=== PATIENT | male | born 1975 | race Two or more races ===

== ENCOUNTER 2018-11-15 14:42 | Observation (INO) | payer OTHER ==
[~2018-11-15] VITALS: Ht 175.3 cm; Wt 73.0 kg
[2018-11-15] MEDS ORDERED: ASPIRIN 81 MG TABLET CHEW PO ONE (15:00)
[2018-11-15 15:06] LABS: BASOPHILS # (AUTO) 0.04 x10^3/uL (0-0.1); BASOPHILS % (AUTO) 1 % (0-1); EOSINOPHILS # (AUTO) 0.07 x10^3/uL (0-0.4); EOSINOPHILS % (AUTO) 1 % (1-7); LYMPHOCYTES # (AUTO) 1.25 x10^3/uL (1-3.4); LYMPHOCYTES % (AUTO) 17 % (22-44); MD NO; MEAN CORPUSCULAR HEMOGLOBIN 30.3 pg (27.5-34.5); MEAN CORPUSCULAR HGB CONC 32.5 g/dL (33.2-36.2); MEAN CORPUSCULAR VOLUME 93.3 fL (81-97); MEAN PLATELET VOLUME 8.4 fL (7.4-10.4); MONOCYTES # (AUTO) 0.29 x10^3/uL (0.2-0.8); MONOCYTES % (AUTO) 4 % (2-9); NEUTROPHILS # (AUTO) 5.92 x10^3/uL (1.8-6.8); NEUTROPHILS % (AUTO) 78 % (42-75); PLATELET COUNT 243 x10^3/uL (130-400); RED BLOOD COUNT 5.05 x10^6/uL (4.38-5.82); RED CELL DISTRIBUTION WIDTH 14.1 % (9.4-14.8)
[2018-11-15 15:19] LABS: ALBUMIN 3.1 g/dL (3.4-5.0); ANION GAP 4 mmol/L (5-15); CALCIUM 7.9 mg/dL (8.5-10.1); CHLORIDE 104 mmol/L (98-107)
[2018-11-15 15:25] LABS: ALANINE AMINOTRANSFERASE 21 U/L (12-78); ALKALINE PHOSPHATASE 52 U/L (45-117); BILIRUBIN,TOTAL 0.6 mg/dL (0.2-1.0); TOTAL PROTEIN 5.2 g/dL (6.4-8.2); TROPONIN I < 0.015 ng/mL (0.000-0.045)
[2018-11-15] MEDS ORDERED: ASPIRIN 81 MG TABLET CHEW ONE (15:43)
[2018-11-15] MEDS ORDERED: D5%-0.45NACL+KCL 20MEQ 1,000 ML IV SCH (16:26)
[2018-11-15] MEDS ORDERED: IBUPROFEN 600 MG TABLET PO PRN (16:30)
[2018-11-15] MEDS ORDERED: ACETAMINOPHEN 325 MG TABLET PO PRN (16:30)
[2018-11-15] MEDS ORDERED: ONDANSETRON 2MG/ML, 2ML IVPush PRN (16:30)
[2018-11-15] MEDS ORDERED: hydrALAzine 20 MG/ML, 1ML IVPush PRN (16:30)
[2018-11-15] MEDS ORDERED: SODIUM CHLORIDE 0.9% 1,000ML IVBOLUS ONE (16:30)
[2018-11-15] MEDS ORDERED: MECLIZINE 25 MG TABLET PO PRN (17:00)
[2018-11-15 18:02] VITALS: BP 113/72
== END 2018-11-15 19:58 | disposition left against medical advice (07) ==
LOC: ED 15:49 → INTOOBSV 15:50 → UNDOADMOB 15:50 → EDIP 15:50 → ED 17:09 → 4WST 18:40 → EDIP 18:40 → 4WST 18:40 → UNDODISOB 19:58
PROVIDERS: ADMIT Internal Medicine; ATTEND Internal Medicine
DX: R55 Syncope and collapse (principal); R07.89 Other chest pain; R73.9 Hyperglycemia, unspecified; R27.0 Ataxia, unspecified; F17.210 Nicotine dependence, cigarettes, uncomplicated; F12.10 Cannabis abuse, uncomplicated; Z72.89 Other problems related to lifestyle
CPT/HCPCS: 36415; 71045; 80053; 83880; 84484; 85025; 93005; 96360; 99284; G0378; J7030

== ENCOUNTER 2018-11-16 14:07 | Emergency (ER) | payer SELFPAY ==
[~2018-11-16] VITALS: Ht 175.3 cm; Wt 70.0 kg
--- NOTE | 2018-11-16 14:16 | NUR ---
task rn: pt bib ems for sharp, intermittent, nonradiating cp starting yesterday. pt states each episode lasts "a few seconds" and is reproducible upon palpation to mid sternum. pt denies trauma. pt was seen here yesterday for same, bu tleft ama prior to diagnosis. iv established in route. 324mg asa administered by ems. pt connected to monitors. vss. edmd present for assessment. awaiting orders.
[2018-11-16 14:35] LABS: BASOPHILS # (AUTO) 0.07 x10^3/uL (0-0.1); BASOPHILS % (AUTO) 1 % (0-1); EOSINOPHILS # (AUTO) 0.08 x10^3/uL (0-0.4); EOSINOPHILS % (AUTO) 1 % (1-7); LYMPHOCYTES # (AUTO) 2.05 x10^3/uL (1-3.4); LYMPHOCYTES % (AUTO) 26 % (22-44); MD NO; MEAN CORPUSCULAR HGB CONC 33.2 g/dL (33.2-36.2); MEAN CORPUSCULAR VOLUME 93.5 fL (81-97); MEAN PLATELET VOLUME 8.8 fL (7.4-10.4); MONOCYTES # (AUTO) 0.41 x10^3/uL (0.2-0.8); MONOCYTES % (AUTO) 5 % (2-9); NEUTROPHILS # (AUTO) 5.28 x10^3/uL (1.8-6.8); NEUTROPHILS % (AUTO) 67 % (42-75); PLATELET COUNT 264 x10^3/uL (130-400); RED BLOOD COUNT 4.66 x10^6/uL (4.38-5.82); RED CELL DISTRIBUTION WIDTH 14.1 % (9.4-14.8)
[2018-11-16 14:45] LABS: ALBUMIN 3.2 g/dL (3.4-5.0); ANION GAP 8 mmol/L (5-15); CALCIUM 8.4 mg/dL (8.5-10.1); CHLORIDE 106 mmol/L (98-107); CREATININE 0.97 mg/dL (0.7-1.3)
[2018-11-16 14:49] LABS: TROPONIN I < 0.015 ng/mL (0.000-0.045)
--- NOTE | 2018-11-16 14:56 | NUR ---
report given to Prabha
[2018-11-16] MEDS ORDERED: ONDANSETRON ODT 4 MG ONE (15:04)
[2018-11-16] MEDS ORDERED: ACETAMINOPHEN 500 MG TABLET ONE (15:04)
--- NOTE | 2018-11-16 15:09 | NUR ---
pt resting in room. vss. pt reports andres and nausea when standing. refused road test. edmd notified. awaiting orders.
[2018-11-16] MEDS ORDERED: ONDANSETRON ODT 4 MG PO ONE (15:30)
[2018-11-16] MEDS ORDERED: ACETAMINOPHEN 500 MG TABLET PO ONE (15:30)
[2018-11-16 16:01] VITALS: BP 118/89
== END 2018-11-16 16:20 | disposition home or self-care (01) ==
LOC: ED 15:09
DX: R07.89 Other chest pain (principal); R06.02 Shortness of breath; R11.0 Nausea; F17.200 Nicotine dependence, unspecified, uncomplicated
CPT/HCPCS: 36415; 71045; 80048; 82040; 84484; 85025; 93005; 99284; Q0162

== ENCOUNTER 2019-03-24 17:16 | Emergency (ER) | payer MEDICAID ==
[~2019-03-24] VITALS: Ht 175.3 cm; Wt 74.0 kg
--- NOTE | 2019-03-24 17:32 | NUR ---
PT BELONGINGS PUT INTO BAGS AND PUT INTO THE LOCKER.
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
--- NOTE | 2019-03-24 17:53 | NUR ---
MEAL TRAY ORDERED AT THIS TIME.
--- NOTE | 2019-03-24 18:07 | NUR ---
PT AWARES OF UA. URINAL AT BEDSIDE.
[2019-03-24 18:30] LABS: BASOPHILS # (AUTO) 0.15 x10^3/uL (0-0.1); BASOPHILS % (AUTO) 1 % (0-1); EOSINOPHILS % (AUTO) 1 % (1-7); LYMPHOCYTES # (AUTO) 2.36 x10^3/uL (1-3.4); LYMPHOCYTES % (AUTO) 21 % (22-44); MD NO; MEAN CORPUSCULAR HEMOGLOBIN 31.3 pg (27.5-34.5); MEAN CORPUSCULAR HGB CONC 32.7 g/dL (33.2-36.2); MEAN CORPUSCULAR VOLUME 95.6 fL (81-97); MEAN PLATELET VOLUME 9.2 fL (7.4-10.4); MONOCYTES # (AUTO) 0.71 x10^3/uL (0.2-0.8); MONOCYTES % (AUTO) 6 % (2-9); NEUTROPHILS # (AUTO) 7.76 x10^3/uL (1.8-6.8); NEUTROPHILS % (AUTO) 70 % (42-75); PLATELET COUNT 313 x10^3/uL (130-400); RED BLOOD COUNT 4.95 x10^6/uL (4.38-5.82); RED CELL DISTRIBUTION WIDTH 14.3 % (9.4-14.8)
--- NOTE | 2019-03-24 18:36 | NUR ---
MEAL TRAY PROVIDED AT THIS TIME.
--- NOTE | 2019-03-24 18:36 | NUR ---
PT PROVIDED URINE SAMPLE. UA SENT.
[2019-03-24 18:50] LABS: ALANINE AMINOTRANSFERASE 45 U/L (12-78); ALBUMIN 3.6 g/dL (3.4-5.0); ANION GAP 5 mmol/L (5-15); CHLORIDE 105 mmol/L (98-107); CREATININE 0.85 mg/dL (0.7-1.3)
[2019-03-24 18:56] LABS: ALKALINE PHOSPHATASE 88 U/L (45-117); BILIRUBIN,TOTAL 0.4 mg/dL (0.2-1.0); SALICYLATE LEVEL < 1.7 mg/dL (2.8-20.0); TOTAL PROTEIN 6.7 g/dL (6.4-8.2)
[2019-03-24 19:06] LABS: AMPHETAMINE SCREEN, URINE Positive (Negative); BARBITURATE SCREEN, URINE Negative (Negative); BENZODIAZEPINE SCREEN, URINE Negative (Negative); CANNABINOID SCREEN, URINE Positive (Negative); COCAINE SCREEN, URINE Negative (Negative); METHADONE SCREEN, URINE Negative (Negative); OPIATE SCREEN, URINE Negative (Negative)
--- NOTE | 2019-03-24 19:55 | NUR ---
Report received from MELISSA Landry. Assumed care of this patient. Patient laying laying bed, awake and alert, with even and unlabored respirations. No sign of acute distress noted.
[2019-03-24 20:00] VITALS: BP 129/92
--- NOTE | 2019-03-24 20:22 | NUR ---
Patient laying in bed, in the process of having tele psych consult.
--- NOTE | 2019-03-24 20:28 | NUR ---
Report given to tele psych doctor, was asking for patients background information. Information given to tele psych MD.
--- NOTE | 2019-03-24 21:54 | NUR ---
Patient requested for snacks. Patient was given food from [employer]. Patient was appreciative about the food being given. Patient in a good mood and very pleasant.
== END 2019-03-24 22:56 | disposition home or self-care (01) ==
LOC: ED 19:24
DX: F43.0 Acute stress reaction (principal); Z72.9 Problem related to lifestyle, unspecified
CPT/HCPCS: 36415; 80053; 80307; 85025; 99284

== ENCOUNTER 2019-03-25 03:58 | Emergency (ER) | payer MEDICAID ==
[~2019-03-25] VITALS: Ht 165.1 cm; Wt 75.0 kg
[2019-03-25 04:01] VITALS: BP 134/88
== END 2019-03-25 06:25 | disposition home or self-care (01) ==
LOC: ED 06:20
DX: J06.9 Acute upper respiratory infection, unspecified (principal); F15.20 Other stimulant dependence, uncomplicated; Z72.9 Problem related to lifestyle, unspecified; F17.210 Nicotine dependence, cigarettes, uncomplicated
CPT/HCPCS: 71046; 99283

== ENCOUNTER 2019-04-26 01:32 | Emergency (ER) | payer MEDICAID ==
[~2019-04-26] VITALS: Ht 170.2 cm; Wt 80.0 kg
[~2019-04-26 01:32] MED LIST: BUSPAR; LISI-170 PO
[2019-04-26] MEDS ORDERED: KETOROLAC 30 MG/1 ML IVPush ONE (02:00)
[2019-04-26] MEDS ORDERED: KETOROLAC 30 MG/1 ML ONE (02:06)
[2019-04-26 02:21] LABS: RAPID INFLUENZA A POSITIVE (Negative); RAPID INFLUENZA B Negative (Negative)
[2019-04-26] MEDS ORDERED: OSELTAMIVIR 75 MG CAPSULE ONE (02:26)
[2019-04-26] MEDS ORDERED: OSELTAMIVIR 75 MG CAPSULE PO ONE (02:30)
== END 2019-04-26 03:03 ==
LOC: ED 02:57
DX: J10.1 Influenza due to other identified influenza virus with other respiratory manifestations (principal)
CPT/HCPCS: 87400; 96374; 99283; J1885

== ENCOUNTER 2019-06-16 01:46 | Emergency (ER) | payer MEDICAID ==
[~2019-06-16] VITALS: Ht 175.3 cm; Wt 75.5 kg
--- NOTE | 2019-06-16 01:55 | NUR ---
ATTEMPTED TO CALL PT FROM LOBBY TO TRIAGE. PT NIL X 1
--- NOTE | 2019-06-16 02:20 | NUR ---
Patient ambulated steadily from triage into room. Patient is alert, oriented. Answers questions clearly and concisely. Awaiting assessment by provider.
--- NOTE | 2019-06-16 02:32 | NUR ---
Provider at bedside; completing assessment. Awaiting orders.
[2019-06-16 02:48] VITALS: BP 125/81
[2019-06-16 02:58] LABS: BASOPHILS % (AUTO) 1 % (0-1); EOSINOPHILS # (AUTO) 0.23 x10^3/uL (0-0.4); EOSINOPHILS % (AUTO) 2 % (1-7); LYMPHOCYTES # (AUTO) 2.76 x10^3/uL (1-3.4); LYMPHOCYTES % (AUTO) 28 % (22-44); MD NO; MEAN CORPUSCULAR HEMOGLOBIN 30.7 pg (27.5-34.5); MEAN CORPUSCULAR HGB CONC 32.8 g/dL (33.2-36.2); MEAN CORPUSCULAR VOLUME 93.5 fL (81-97); MEAN PLATELET VOLUME 8.7 fL (7.4-10.4); MONOCYTES # (AUTO) 0.63 x10^3/uL (0.2-0.8); MONOCYTES % (AUTO) 7 % (2-9); NEUTROPHILS # (AUTO) 6.05 x10^3/uL (1.8-6.8); NEUTROPHILS % (AUTO) 62 % (42-75); PLATELET COUNT 360 x10^3/uL (130-400); RED BLOOD COUNT 4.65 x10^6/uL (4.38-5.82); RED CELL DISTRIBUTION WIDTH 13.9 % (9.4-14.8)
[2019-06-16 03:01] LABS: MICROSCOPIC NOT IND
[2019-06-16 03:03] LABS: CULTURE INDICATED? NO
[2019-06-16 03:10] LABS: ALANINE AMINOTRANSFERASE 35 U/L (12-78); ALBUMIN 3.2 g/dL (3.4-5.0); ANION GAP 7 mmol/L (5-15); CALCIUM 8.8 mg/dL (8.5-10.1); CHLORIDE 106 mmol/L (98-107); CREATININE 0.87 mg/dL (0.7-1.3)
[2019-06-16 03:12] LABS: ALKALINE PHOSPHATASE 93 U/L (45-117); BILIRUBIN,TOTAL 0.2 mg/dL (0.2-1.0); TOTAL PROTEIN 5.9 g/dL (6.4-8.2)
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
--- NOTE | 2019-06-16 04:08 | NUR ---
lab called to add on urine drug
--- NOTE | 2019-06-16 04:18 | NUR ---
rpd at pt's bedside
[2019-06-16 04:30] LABS: AMPHETAMINE SCREEN, URINE Positive (Negative); BARBITURATE SCREEN, URINE Negative (Negative); BENZODIAZEPINE SCREEN, URINE Negative (Negative); CANNABINOID SCREEN, URINE Positive (Negative); COCAINE SCREEN, URINE Negative (Negative); METHADONE SCREEN, URINE Negative (Negative); OPIATE SCREEN, URINE Negative (Negative)
[2019-06-16 04:46] LABS: SALICYLATE LEVEL < 1.7 mg/dL (2.8-20.0)
== END 2019-06-16 05:00 | disposition home or self-care (01) ==
LOC: ED 02:46
DX: F10.129 Alcohol abuse with intoxication, unspecified (principal); R10.84 Generalized abdominal pain; F15.129 Other stimulant abuse with intoxication, unspecified; F17.210 Nicotine dependence, cigarettes, uncomplicated; Y90.0 Blood alcohol level of less than 20 mg/100 ml
CPT/HCPCS: 36415; 80053; 80307; 81003; 83690; 85025; 93005; 99284

== ENCOUNTER 2019-06-24 15:31 | Emergency (ER) | payer MEDICAID ==
[~2019-06-24] VITALS: Ht 175.3 cm; Wt 72.0 kg
[2019-06-24 15:35] VITALS: BP 123/87
--- NOTE | 2019-06-24 16:11 | NUR ---
i am assuming care of this pt from alfreda (rn) while he enjoys a lunchbreak. sbar report was exchanged at the bedside.
== END 2019-06-24 17:34 | disposition home or self-care (01) ==
LOC: ED 16:11
DX: R07.89 Other chest pain (principal); F10.129 Alcohol abuse with intoxication, unspecified; F12.129 Cannabis abuse with intoxication, unspecified; F17.200 Nicotine dependence, unspecified, uncomplicated; F11.129 Opioid abuse with intoxication, unspecified; Y90.0 Blood alcohol level of less than 20 mg/100 ml
CPT/HCPCS: 71045; 93005; 99283

== ENCOUNTER 2019-08-21 00:52 | Emergency (ER) | payer MEDICAID ==
[~2019-08-21] VITALS: Ht 165.1 cm; Wt 73.3 kg
--- NOTE | 2019-08-21 01:48 | NUR ---
NO ANSWER WHEN CALLED FOR ROOM
--- NOTE | 2019-08-21 02:15 | NUR ---
NO ANSWER WHEN CALLED FOR ROOM
--- NOTE | 2019-08-21 03:03 | NUR ---
NO ANSWER WHEN CALLED FOR ROOM
[2019-08-21] MEDS ORDERED: LORazepam 1MG TABLET ONE (03:46)
[2019-08-21 03:51] VITALS: BP 142/88
[2019-08-21] MEDS ORDERED: QUET25TA5 PO (03:54)
[2019-08-21] MEDS ORDERED: LORazepam 1MG TABLET PO ONE (04:00)
== END 2019-08-21 04:17 | disposition home or self-care (01) ==
LOC: ED 03:32
DX: F41.1 Generalized anxiety disorder (principal); F14.10 Cocaine abuse, uncomplicated; Z72.9 Problem related to lifestyle, unspecified; F17.200 Nicotine dependence, unspecified, uncomplicated
CPT/HCPCS: 99283

== ENCOUNTER 2019-10-13 00:28 | Emergency (ER) | payer MEDICAID ==
[~2019-10-13] VITALS: Ht 175.3 cm; Wt 76.4 kg
[~2019-10-13 00:28] MED LIST changes: +QUET25TA5 PO
[2019-10-13 00:30] VITALS: BP 118/80
[2019-10-13] MEDS ORDERED: PROPARACAINE OPHTH 0.5%, 15ML ONE (00:39)
[2019-10-13] MEDS ORDERED: FLUORESCEIN OPHTHALMIC 1 MG STRIP ONE (00:39)
[2019-10-13] MEDS ORDERED: ERYTHROMYCIN OPHTH 0.5%, 1GM RIGHTEYE ONE (01:00)
[2019-10-13] MEDS ORDERED: PROPARACAINE OPHTH 0.5%, 15ML RIGHTEYE ONE (01:30)
[2019-10-13] MEDS ORDERED: FLUORESCEIN OPHTHALMIC 1 MG STRIP RIGHTEYE ONE (01:30)
== END 2019-10-13 01:23 | disposition home or self-care (01) ==
LOC: ED 01:20
DX: S05.01XA Injury of conjunctiva and corneal abrasion without foreign body, right eye, initial encounter (principal); H11.421 Conjunctival edema, right eye; X58.XXXA Exposure to other specified factors, initial encounter; Y93.89 Activity, other specified; Y92.488 Other paved roadways as the place of occurrence of the external cause; Y99.8 Other external cause status
CPT/HCPCS: 99283; 99284

== ENCOUNTER 2019-10-29 05:44 | Emergency (ER) | payer MEDICAID ==
[~2019-10-29] VITALS: Ht 175.3 cm; Wt 67.0 kg
[2019-10-29 05:49] VITALS: BP 126/76
--- NOTE | 2019-10-29 06:02 | NUR ---
urine sample sent. pa at pt's bedside for eval
[2019-10-29] MEDS ORDERED: AZITHROMYCIN 250 MG TABLET ONE (06:07)
[2019-10-29] MEDS ORDERED: CEFTRIAXONE 250 MG ONE (06:07)
[2019-10-29] MEDS ORDERED: AZITHROMYCIN 500 MG TABLET PO ONE (06:30)
[2019-10-29] MEDS ORDERED: CEFTRIAXONE 250 MG IM ONE (06:30)
== END 2019-10-29 06:26 | disposition home or self-care (01) ==
LOC: ED 06:23
DX: N34.2 Other urethritis (principal); F17.200 Nicotine dependence, unspecified, uncomplicated
CPT/HCPCS: 87491; 87591; 96372; 99283; J0696

== ENCOUNTER 2020-11-06 18:02 | Emergency (ER) | payer MEDICAID ==
[~2020-11-06] VITALS: Ht 182.9 cm; Wt 75.0 kg
[2020-11-06] MEDS ORDERED: ACETAMINOPHEN 500 MG TABLET ONE (18:41)
--- NOTE | 2020-11-06 18:43 | NUR ---
MEDICATED PER EMAR FOR [facility] AT 11/08. POC DISCUSSED WITH PROVIDER WILL ENCOURAGE FLUIDS THEN D/C
[2020-11-06] MEDS ORDERED: ACETAMINOPHEN 500 MG TABLET PO ONE (19:00)
[2020-11-06 19:31] VITALS: BP 117/74
--- NOTE | 2020-11-06 19:51 | NUR ---
Patient given verbal discharge instructions and they have confirmed that they understand the instructions. Patient ambulatory with steady gait and left ED prior to receiving written d/c instructions.
== END 2020-11-06 19:55 | disposition home or self-care (01) ==
LOC: ED 18:28
DX: F15.10 Other stimulant abuse, uncomplicated (principal); R41.82 Altered mental status, unspecified; R51.9 Headache, unspecified; R42 Dizziness and giddiness; F17.210 Nicotine dependence, cigarettes, uncomplicated
CPT/HCPCS: 99283

== ENCOUNTER 2020-11-10 14:58 | Emergency (ER) | payer MEDICAID ==
[~2020-11-10] VITALS: Ht 175.3 cm; Wt 73.1 kg
[2020-11-10 15:02] VITALS: BP 128/75
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
--- NOTE | 2020-11-10 15:58 | NUR ---
REPORT FROM NATALY TORRES, ASSUME CARE OF PT AT THIS TIME. ROOM SECURED, PT SLEEPING. PT AROUSABLE, DENIES ANY PHYSICAL SYMPTOMS EXCEPT INSOMNIA. PT STATES HE'S BEEN DOING METH AND NOT SLEEPING FOR THREE DAYS. LABS DRAWN, PT AWARE OF NEED FOR URINE SPECIMEN. SITTER AT DOORWAY. LIGHTS DIMMED, WARM BLANKET PROVIDED, PT CONTINUES TO SLEEP.
[2020-11-10 16:00] LABS: BASOPHILS % (AUTO) 1 % (0-1); EOSINOPHILS % (AUTO) 2 % (1-7); LYMPHOCYTES % (AUTO) 21 % (22-44); MEAN CORPUSCULAR HEMOGLOBIN 31.4 pg (27.5-34.5); MEAN CORPUSCULAR HGB CONC 33.9 g/dL (33.2-36.2); MEAN PLATELET VOLUME 8.4 fL (7.4-10.4); MONOCYTES % (AUTO) 7 % (2-9); NEUTROPHILS % (AUTO) 69 % (42-75); PLATELET COUNT 255 x10^3/uL (130-400); RED BLOOD COUNT 4.52 x10^6/uL (4.38-5.82); RED CELL DISTRIBUTION WIDTH 13.4 % (9.4-14.8)
[2020-11-10 16:13] LABS: ALBUMIN 3.6 g/dL (3.4-5.0); ANION GAP 6 mmol/L (5-15); CALCIUM 8.7 mg/dL (8.5-10.1); CHLORIDE 105 mmol/L (98-107)
[2020-11-10 16:15] LABS: SALICYLATE LEVEL < 1.7 mg/dL (2.8-20.0)
--- NOTE | 2020-11-10 18:29 | NUR ---
PT DISCHARGED FROM ER WITH TAXI VOUCHER AND SCRIPT. PT DIRECTED TO GO DIRECTLY TO [facility]. PT VERBALIZES UNDERSTANDING OF INSTRUCTIONS. BELONGINGS RETURNED/PT SIGNED PAPERWORK.
== END 2020-11-10 18:46 | disposition home or self-care (01) ==
LOC: ED 18:40
DX: F33.9 Major depressive disorder, recurrent, unspecified (principal); F15.129 Other stimulant abuse with intoxication, unspecified; F17.200 Nicotine dependence, unspecified, uncomplicated
CPT/HCPCS: 36415; 80048; 80299; 80329; 82040; 85025; 99284; G0480

== ENCOUNTER 2021-01-07 11:53 | Emergency (ER) | payer MEDICAID ==
[~2021-01-07] VITALS: Ht 175.3 cm; Wt 72.4 kg
[2021-01-07 13:09] LABS: BASOPHILS % (AUTO) 2 % (0-1); EOSINOPHILS % (AUTO) 1 % (1-7); LYMPHOCYTES % (AUTO) 24 % (22-44); MEAN CORPUSCULAR HEMOGLOBIN 31.2 pg (27.5-34.5); MEAN CORPUSCULAR HGB CONC 34.1 g/dL (33.2-36.2); MEAN PLATELET VOLUME 7.9 fL (7.4-10.4); MONOCYTES % (AUTO) 8 % (2-9); NEUTROPHILS % (AUTO) 66 % (42-75); PLATELET COUNT 347 x10^3/uL (130-400); RED BLOOD COUNT 4.46 x10^6/uL (4.38-5.82); RED CELL DISTRIBUTION WIDTH 13.2 % (9.4-14.8)
[2021-01-07 13:18] LABS: ALBUMIN 3.7 g/dL (3.4-5.0); ANION GAP 6 mmol/L (5-15); CHLORIDE 100 mmol/L (98-107); CREATININE 0.84 mg/dL (0.7-1.3)
[2021-01-07 14:09] VITALS: BP 136/52
== END 2021-01-07 14:11 | disposition home or self-care (01) ==
LOC: ED 13:55
DX: R42 Dizziness and giddiness (principal); R00.2 Palpitations; R11.0 Nausea; F15.129 Other stimulant abuse with intoxication, unspecified
CPT/HCPCS: 36415; 80048; 82040; 85025; 93005; 99284

== ENCOUNTER 2021-01-13 12:25 | Emergency (ER) | payer MEDICAID ==
[~2021-01-13] VITALS: Ht 175.3 cm; Wt 72.7 kg
[2021-01-13 12:58] VITALS: BP 135/67
[2021-01-13 13:27] LABS: BASOPHILS % (AUTO) 0 % (0-1); EOSINOPHILS % (AUTO) 3 % (1-7); LYMPHOCYTES % (AUTO) 27 % (22-44); MEAN CORPUSCULAR HEMOGLOBIN 31.4 pg (27.5-34.5); MEAN CORPUSCULAR HGB CONC 33.9 g/dL (33.2-36.2); MEAN PLATELET VOLUME 8.6 fL (7.4-10.4); MONOCYTES % (AUTO) 7 % (2-9); NEUTROPHILS % (AUTO) 62 % (42-75); PLATELET COUNT 317 x10^3/uL (130-400); RED BLOOD COUNT 4.09 x10^6/uL (4.38-5.82); RED CELL DISTRIBUTION WIDTH 13.8 % (9.4-14.8)
[2021-01-13 13:35] LABS: ALBUMIN 3.3 g/dL (3.4-5.0); ANION GAP 4 mmol/L (5-15); CALCIUM 8.9 mg/dL (8.5-10.1); CHLORIDE 104 mmol/L (98-107); CREATININE 0.66 mg/dL (0.7-1.3)
[2021-01-13 15:52] LABS: HCT (SEDRATE) 37.8 % (39.2-51.8)
[2021-01-13] MEDS ORDERED: NEOSPORIN OINT. PKT 1 PACKET ONE (16:22)
== END 2021-01-13 17:13 | disposition home or self-care (01) ==
LOC: ED 14:40
DX: S62.322A Displaced fracture of shaft of third metacarpal bone, right hand, initial encounter for closed fracture (principal); F17.200 Nicotine dependence, unspecified, uncomplicated; X58.XXXA Exposure to other specified factors, initial encounter; Y93.89 Activity, other specified; Y92.89 Other specified places as the place of occurrence of the external cause; Y99.8 Other external cause status
CPT/HCPCS: 29125; 36415; 80048; 82040; 85025; 85651; 86140; 99284